=== PATIENT | male | born 1935 ===

== ENCOUNTER 2016-12-26 00:17 | Inpatient (IN) | payer MEDICARE, OTHER ==
[2016-12-26 01:18] VITALS: BMI 22.4
[2016-12-26] MEDS ORDERED: Meropenem 500 MG in Sodium Chloride 0.9% 100 ML IVPB ONE (03:00)
[2016-12-26] MEDS: Pantoprazole 40 mg EC Tab PO SCH (09:37)
[2016-12-26] MEDS ORDERED: Gentamicin 160 MG in Sodium Chloride 0.9% 100 ML IVPB ONE (11:00)
--- NOTE | 2016-12-26 12:05 | CP.PCM.CON ---
History of Present Illness - History of Present Illness History of Present Illness: sent from [facility] cysto on iv rx will renew merrem Past Patient History - Past Medical History & Family History Past Medical History?: Yes - Past Social History Smoking Status: Never Smoked - CARDIAC Hx Cardiac Disorders: No - PULMONARY Hx Respiratory Disorders: No - NEUROLOGICAL Hx Neurological Disorder: No - HEENT Hx HEENT Problems: No - RENAL Hx Chronic Kidney Disease: No - ENDOCRINE/METABOLIC Hx Endocrine Disorders: No - HEMATOLOGICAL/ONCOLOGICAL Hx Blood Disorders: No - INTEGUMENTARY Hx Dermatological Problems: No - MUSCULOSKELETAL/RHEUMATOLOGICAL Hx Falls: Yes - GASTROINTESTINAL Hx Gastrointestinal Disorders: Yes Other/Comment: abdominal surgery - GENITOURINARY/GYNECOLOGICAL Hx Genitourinary Disorders: Yes Hx Prostate Problems: Yes - PSYCHIATRIC Hx Substance Use: No - SURGICAL HISTORY Hx Surgeries: Yes Other/Comment: Surgery for gastric ulcer - ANESTHESIA Hx Anesthesia: Yes Hx Anesthesia Reactions: No Hx Malignant Hyperthermia: No Has any member of the family had a problem w/ anesthesia?: No Meds Allergies/Adverse Reactions: Allergies Allergy/AdvReac Type Severity Reaction Status Date / Time No Known Allergies Allergy Verified 12/20/16 13:46 - Medications Medications: Current Medications Acetaminophen (Tylenol 325mg Tab) 650 mg PO Q6 PRN PRN Reason: Pain, moderate (4-7) Vancomycin HCl 500 mg/ Sodium (Chloride) 100 mls @ 100 mls/hr IVPB DAILY [facility] Last Admin: 12/26/16 10:00 Dose: 100 mls/hr Meropenem 500 mg/ Sodium (Chloride) 100 mls @ 100 mls/hr IVPB Q8 ANNIA Pantoprazole Sodium (Protonix Ec Tab) 40 mg PO DAILY [facility] Last Admin: 12/26/16 09:37 Dose: Not Given Pneumococcal Polyvalent Vaccine (Pneumovax 23 Vaccine) 0.5 ml IM .ONCE ONE Stop: 12/28/16 10:01 Tamsulosin HCl (Flomax) 0.4 mg PO DAILY [facility] Last Admin: 12/26/16 09:37 Dose: Not Given Results - Vital Signs Recent Vital Signs: Last Vital Signs Temp 97.7 F 12/26/16 07:30 Pulse 54 L 12/26/16 07:30 Resp 18 12/26/16 07:30 BP 158/84 H 12/26/16 07:30 Pulse Ox 100 12/26/16 07:30
[2016-12-26] MEDS ORDERED: Lactated Ringer's 500 ML IV ONE ×3 (12:50→15:00)
[2016-12-26] MEDS ORDERED: Lidocaine 2% Jelly (Uro-Jet) ONE (12:55)
[2016-12-26] MEDS ORDERED: Etomidate 20 mg/10ml Inj IV ONE (12:58)
[2016-12-26] MEDS: Iohexol 240 (50 ml) ONE ×2 (13:18→13:30)
[2016-12-26] MEDS ORDERED: HYDROmorphone 0.5 mg/0.5 ml ISec IVP PRN (13:55)
--- NOTE | 2016-12-26 13:55 | PCM.SURG1 ---
Surgeon's Initial Post Op Note - Surgeon's Notes Surgeon: Elan Dog Food Dough Mixer: Na Type of Anesthesia: General LMA Anesthesia Administered By: staff Pre-Operative Diagnosis: Urethral stricture/urinary retention./scrotal and penile abcess old Operative Findings: urethral stricture/previously drained abcess Post-Operative Diagnosis: same Operation Performed: cysto/ballon dilitation/insertion of graham Specimen/Specimens Removed: na Estimated Blood Loss: EBL {In ML}: 0 Blood Products Given: N/A Drains Used: No Drains Post-Op Condition: Good Date of Surgery/Procedure: 12/26/16 Time of Surgery/Procedure: 13:58
--- NOTE | 2016-12-26 15:17 | OP ---
PROCEDURE DATE: 12/26/2016 PREOPERATIVE DIAGNOSES: Urethral stricture and urinary retention, and multiple superficial scrotal a nd penile skin abscesses which were spontaneously drained. POSTOPERATIVE DIAGNOSES: Urethral stricture and urinary retention, and multiple superficial scrotal and penile skin abscesses which were spontaneously drained. PROCEDURES: Cystoscopy, balloon dilatation of the urethra, and optical internal urethrotomy. DESCRIPTION OF PROCEDURE: The patient was draped and prepped in the usual manner. Prior to the proc edure, he has taken a detailed informed consent and explaining the risks, complications of urethral i ncision and balloon dilatation and the risks and complications of suprapubic cystotomy. The patient was brought into the room. After a timeout was taken according the rules and regulations of [facility], the patient was cystoscoped with a #21 Stortz panendoscope. The previously dilated distal u rethral stricture was located and we were able to pass a guidewire through this and also, under fluor oscopic control, through a second posterior urethral stricture and into the bladder. The guidewire w as noted to curl within the bladder. The balloon dilatation device was then passed over this and pos itioned properly with fluoroscopic and visual control, and then the balloon was inflated with the lizzeth ropriate amount of contrast. After a 3 minute delay, the balloon was deflated and the catheter was r emoved. The scope was backed out and a #20 2-way 5 mL catheter was passed over the balloon and into the bladder under fluoroscopic control. Approximately 1000 mL of yellow urine was obtained. Culture was obtained. Vang was inflated with the proper amount of saline. I would suggest that this hilaria ter be left in place for at least 1-2 weeks, until full antibiotic treatment of any infection is comp leted. Dino Ansari MD cc: [id number] TT: 12/26/2016 15:16:38 donta
--- NOTE | 2016-12-26 16:30 | RAD ---
PROCEDURE: Intraoperative Fluoroscopy. HISTORY: URETHERAL STRICTURE FINDINGS: Fluoroscopic assistance was provided for urethral stricture.. Please
[2016-12-26] MEDS: Meropenem 500 MG in Sodium Chloride 0.9% 100 ML IVPB SCH (21:23)
--- NOTE | 2016-12-26 22:21 | HP ---
HISTORY OF PRESENT ILLNESS: This is an 81-year-old male with history of multiple medical problems including urethral stricture, was transferred from [place] to [facility] for urethral dilatation and Vagn catheter insertion. Patient currently denied any chest pain or shortness of breath. Dr. Ansari is a urologist and patient will undergo the procedure at [facility]. REVIEW OF SYSTEMS: Otherwise negative. ALLERGIES: No known allergies. MEDICATIONS: Flomax 0.4 mg daily, meropenem 500 mg every 8 hours. SOCIAL HISTORY: Ex- smoker, no ETOH or substance abuse. FAMILY HISTORY: Noncontributory. PAST MEDICAL HISTORY: Status post gastric ulcer surgery. PHYSICAL EXAMINATION: GENERAL: The patient is in bed, comfortable, not in any cardiopulmonary distress. VITAL SIGNS: Blood pressure is 142/76, temperature 97.2, respiratory rate 14, pulse 65. HEENT: Pupils equal, reactive to light. Normal-appearing mucosa of the conjunctivae, oropharyngeal and nasal membrane mucosa. NECK: Supple, no JVD, no carotid bruit, no lymph node, no thyromegaly. CHEST AND LUNGS: Bilateral symmetrical expansion, good air exchange. No rales , no rhonchi. CARDIOVASCULAR: PMI not localized. S1, S2. No additional sounds. ABDOMEN: Normoactive bowel sounds, no tenderness, no organomegaly, no masses. EXTREMITIES: No cyanosis, no clubbing, no edema. CENTRAL NERVOUS SYSTEM: Alert, awake, oriented x 2. No neurological deficits could be appreciated. ASSESSMENT: 1. Urethral stricture. 2. 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 3. History of urinary retention. 4. Urinary tract infection. PLAN: Continue current IV antibiotics as per ID. Follow recommendations of urologist. Perry Stroud MD cc: [phone] TT: 12/26/2016 22:20:27 an MTDD
[2016-12-27] MEDS: Meropenem 500 MG in Sodium Chloride 0.9% 100 ML IVPB SCH ×3 (06:38→21:26)
[2016-12-27 08:57] LABS: CHLORIDE 106 mmol/L (98-107); POTASSIUM 3.3 mmol/L (3.6-5.2); SODIUM 139 mmol/L (132-148)
[2016-12-27 08:59] LABS: GFR AFRICAN-AMERICAN > 60
[2016-12-27 09:00] LABS: BLOOD UREA NITROGEN 11 mg/dL (9-20); CALCIUM 7.5 mg/dl (8.6-10.4); CARBON DIOXIDE 25 mmol/L (22-30); GLUCOSE,RANDOM 85 mg/dL (75-110)
[2016-12-27 09:01] LABS: BASO # 0.1 K/uL (0.0-0.2); BASO % 0.9 % (0.0-2.0); EOS # 0.1 K/uL (0.0-0.7); HEMATOCRIT 36.9 % (35.0-51.0); LYMPH # 1.3 K/uL (1.0-4.3); LYMPH % 19.4 % (20.0-40.0); MEAN CELL VOLUME 91.7 fL (80.0-94.0); MEAN CORPUSCULAR HGB CONC 32.7 g/dL (33.0-37.0); MEAN PLATELET VOLUME 8.8 fL (7.2-11.7); MONO # 0.4 K/uL (0.0-0.8); MONO % 5.9 % (0.0-10.0); NRBC % 0.2 % (0.0-2.0); RED CELL DISTRIBUTION WIDTH 14.5 % (11.5-14.5); WHITE BLOOD COUNT 6.8 K/uL (4.8-10.8)
[2016-12-27] MEDS: Pantoprazole 40 mg EC Tab PO SCH (09:33)
[2016-12-27] MEDS: Enoxaparin 40 mg Syringe SC SCH (11:23)
--- NOTE | 2016-12-27 17:10 | CP.PCM.PN ---
Subjective - Date & Time of Evaluation Date of Evaluation: 12/27/16 Time of Evaluation: 07:00 - Subjective Subjective: s/p drainage penile/scrotal abscess and ureteral dilatation feels ok no fever rx in progress Objective - Vital Signs/Intake and Output Vital Signs (last 24 hours): Temp Pulse Resp BP Pulse Ox 98.3 F 67 18 129/76 97 12/27/16 15:59 12/27/16 15:59 12/27/16 15:59 12/27/16 15:59 12/27/16 15:59 Intake and Output: 12/27/16 12/27/16 06:59 18:59 Intake Total 500 Output Total 2500 500 Balance -2000 -500 - Medications Medications: Current Medications Acetaminophen (Tylenol 325mg Tab) 650 mg PO Q6 PRN PRN Reason: Pain, moderate (4-7) Enoxaparin Sodium (Lovenox) 40 mg SC DAILY [facility] Last Admin: 12/27/16 11:23 Dose: 40 mg Vancomycin HCl 500 mg/ Sodium (Chloride) 100 mls @ 100 mls/hr IVPB DAILY [facility] Last Admin: 12/27/16 09:34 Dose: 100 mls/hr Meropenem 500 mg/ Sodium (Chloride) 100 mls @ 100 mls/hr IVPB Q8 [facility] Last Admin: 12/27/16 13:20 Dose: 100 mls/hr Pantoprazole Sodium (Protonix Ec Tab) 40 mg PO DAILY [facility] Last Admin: 12/27/16 09:33 Dose: 40 mg Pneumococcal Polyvalent Vaccine (Pneumovax 23 Vaccine) 0.5 ml IM .ONCE ONE Stop: 12/28/16 10:01 Tamsulosin HCl (Flomax) 0.4 mg PO DAILY [facility] Last Admin: 12/27/16 09:33 Dose: 0.4 mg - Labs Labs: 12/27/16 08:37 12/27/16 08:37 - Constitutional Appears: Non-toxic, Chronically Ill - Head Exam Head Exam: NORMOCEPHALIC - Eye Exam Eye Exam: PERRL. absent: Scleral icterus - ENT Exam ENT Exam: Mucous Membranes Dry, Normal External Ear Exam - Neck Exam Neck Exam: absent: Lymphadenopathy - Respiratory Exam Respiratory Exam: Decreased Breath Sounds, Clear to Ausculation Bilateral - Cardiovascular Exam Cardiovascular Exam: REGULAR RHYTHM, +S1, +S2 - GI/Abdominal Exam GI & Abdominal Exam: Distended, Soft. absent: Tenderness - Rectal Exam Rectal Exam: Deferred - Exam Exam: NORMAL INSPECTION - Extremities Exam Extremities Exam: absent: Pedal Edema - Back Exam Back Exam: absent: CVA tenderness (L), CVA tenderness (R) - Neurological Exam Neurological Exam: Alert, Awake, Oriented x3 - Psychiatric Exam Psychiatric exam: Normal Mood - Skin Skin Exam: Dry Assessment and Plan (1) Abscess of penis Status: Acute (2) Abscess of shaft of penis Status: Acute (3) Urinary retention Status: Acute (4) Urinary tract infection due to Proteus Status: Acute
[2016-12-27] MEDS ORDERED: Potassium Chloride 20 mEq/15 ml LIQ UD PO ONE (22:32)
--- NOTE | 2016-12-28 00:15 | PN ---
DATE: 12/27/2016 SUBJECTIVE: The patient is seen today, 12/27/2016. He is not in pain anymore. PHYSICAL EXAMINATION VITAL SIGNS: Blood pressure 155/81, temperature 97.6, respiratory rate 20, and pulse 86. HEENT: Equal reactive to light. Normal-appearing mucosa of the conjunctivae, oropharyngeal and nasa l membrane mucosa. NECK: Supple, no JVD, no carotid bruit, no lymph node, no thyromegaly. CHEST AND LUNGS: Symmetrical expansion, good air exchange, no rales, no rhonchi. CARDIOVASCULAR: PMI not localized, S1 and S2. No additional sounds. ABDOMEN: Normoactive bowel sounds, no tenderness, no organomegaly, no masses. EXTREMITIES: No cyanosis, no clubbing, no edema. CENTRAL NERVOUS SYSTEM: Alert, awake, oriented x 2. No neurological deficits could be appreciated. ASSESSMENT: 1. Status post urinary retention secondary to urethral stricture. 2. Urinary tract infection with klebsiella, which is multidrug resistant. 3. Benign abscess, status post incision and drainage. PLAN: Continue current IV antibiotics, both vancomycin and meropenem. Deep vein thrombosis prophyla xis, physical therapy. Continue on the Vang catheter and we will supplement potassium today because potassium is 3.3. Perry Stroud MD cc: 167 TT: 12/28/2016 00:14:52 Confirmation # [id number] Dictation # [id number] donta
[2016-12-28 02:42] LABS: RBC URINE 14 /hpf (0-3); URINE BACTERIA RARE (<OCC); URINE BILIRUBIN NEGATIVE (NEGATIVE); URINE BLOOD 2+ (NEGATIVE); URINE COLOR Yellow (YELLOW); URINE GLUCOSE (UA) NORMAL (Normal); URINE KETONE NEGATIVE (NEGATIVE); URINE LEUKOCYTE ESTERASE 3+ Leu/uL (Negative); URINE PROTEIN NEGATIVE (NEGATIVE); URINE UROBILINOGEN NORMAL mg/dL (0.2-1.0); WBC URINE 115 /hpf (0-5)
[2016-12-28] MEDS: Meropenem 500 MG in Sodium Chloride 0.9% 100 ML IVPB SCH ×3 (05:36→22:01)
[2016-12-28] MEDS: Pantoprazole 40 mg EC Tab PO SCH (09:56)
[2016-12-28] MEDS: Enoxaparin 40 mg Syringe SC SCH (09:57)
[2016-12-28] MEDS ORDERED: Pneumococcal 23-Valent Vaccine IM ONE (10:00)
--- NOTE | 2016-12-28 20:41 | PN ---
DATE: 12/28/2016 SUBJECTIVE: The patient is seen today, 12/28/2016. He is still on IV antibiotics, both meropenem an d vancomycin. PHYSICAL EXAMINATION: VITAL SIGNS: Blood pressure is 137/83, temperature 97.4, respiratory rate 20, and pulse 62. HEENT: Pupils equal, reactive to light. Normal-appearing mucosa of the conjunctivae, oropharyngeal, and nasal membrane mucosa. NECK: Supple. No JVD. No carotid bruit. No lymph node. No thyromegaly. CHEST AND LUNGS: Bilateral symmetrical expansion, good air exchange. No rales. No rhonchi. CARDIOVASCULAR: PMI not localized. S1, S2. No additional sounds. ABDOMEN: Normoactive bowel sounds. No tenderness. No organomegaly. No masses. EXTREMITIES: No cyanosis. No clubbing. No edema. CENTRAL NERVOUS SYSTEM: Alert, awake, oriented x 2. No neurological deficits could be appreciated. ASSESSMENT: 1. Urinary retention secondary to urethral stricture, status post urethral dilatation. 2. Urinary tract infection. 3. Penile abscess. PLAN: Continue current IV antibiotics and follow recommendations of the ID and maintain Vang cathet er and follow recommendations of urologist. Perry Stroud MD cc: [phone] TT: 12/28/2016 20:39:58 Confirmation # [id number] Dictation # [id number]
[2016-12-29] MEDS: Meropenem 500 MG in Sodium Chloride 0.9% 100 ML IVPB SCH ×2 (05:11→13:04)
[2016-12-29 07:57] VITALS: O2SAT 95
[2016-12-29] MEDS: Pantoprazole 40 mg EC Tab PO SCH (09:45)
[2016-12-29] MEDS: Enoxaparin 40 mg Syringe SC SCH (09:45)
--- NOTE | 2016-12-29 11:25 | CP.PCM.PN ---
Subjective - Date & Time of Evaluation Date of Evaluation: 12/29/16 Time of Evaluation: 11:00 - Subjective Subjective: Alert, awake, denies pain or distress. Objective - Vital Signs/Intake and Output Vital Signs (last 24 hours): Temp Pulse Resp BP Pulse Ox 97.5 F L 58 L 18 131/84 95 12/29/16 07:20 12/29/16 07:20 12/29/16 07:20 12/29/16 07:20 12/29/16 07:20 Intake and Output: 12/29/16 12/29/16 06:59 18:59 Output Total 1650 Balance -1650 - Medications Medications: Current Medications Acetaminophen (Tylenol 325mg Tab) 650 mg PO Q6 PRN PRN Reason: Pain, moderate (4-7) Cephalexin Monohydrate (Keflex) 500 mg PO TID [facility] Last Admin: 12/29/16 10:48 Dose: 500 mg Enoxaparin Sodium (Lovenox) 40 mg SC DAILY [facility] Last Admin: 12/29/16 09:45 Dose: 40 mg Vancomycin HCl 500 mg/ Sodium (Chloride) 100 mls @ 100 mls/hr IVPB DAILY [facility] Last Admin: 12/28/16 09:57 Dose: 100 mls/hr Meropenem 500 mg/ Sodium (Chloride) 100 mls @ 100 mls/hr IVPB Q8 [facility] Last Admin: 12/29/16 05:11 Dose: 100 mls/hr Pantoprazole Sodium (Protonix Ec Tab) 40 mg PO DAILY [facility] Last Admin: 12/29/16 09:45 Dose: 40 mg Tamsulosin HCl (Flomax) 0.4 mg PO DAILY [facility] Last Admin: 12/29/16 09:45 Dose: 0.4 mg - Labs Labs: 12/27/16 08:37 12/27/16 08:37 Assessment and Plan - Assessment and Plan (Free Text) Assessment: Patient is seen and examined, alert, orientedx3, NAD. Denies pain, graham in place. D/W DR Stroud, discharge plan for today with leg bag and keep the graham catheter. To follow up with DR Kuhn in 1 week in the office.
[2016-12-29 11:53] LABS: CHLORIDE 104 mmol/L (98-107); POTASSIUM 3.9 mmol/L (3.6-5.2); SODIUM 137 mmol/L (132-148)
[2016-12-29 11:55] LABS: GFR AFRICAN-AMERICAN > 60
[2016-12-29 11:56] LABS: BLOOD UREA NITROGEN 9 mg/dL (9-20); CARBON DIOXIDE 21 mmol/L (22-30); GLUCOSE,RANDOM 87 mg/dL (75-110)
[2016-12-29 16:16] VITALS: BP 123/71; PULSE 76; RESP 20; TEMP 98.7
--- NOTE | 2017-03-08 10:49 | DS ---
HISTORY OF PRESENT ILLNESS: This is an 81-year-old male with history of urinary retention secondary to urethral stricture, was transferred from [facility] to [facility] for management of the same. COURSE OF HOSPITALIZATION: The patient was transferred to [facility]. Patient's urologist was Dr. Mane who attempted the procedure in [facility] and due to unavailability of instruments, patient was transferred to [facility] where he had urethral dilation procedure and catheter was placed. The patient was continued on IV antibiotics both meropenem and vancomycin treating sepsis and urinary tract infection and he was discharged home in stable condition with urinary catheter to follow with urologist after discharge. FINAL DIAGNOSES: 1. Urinary retention secondary to urethral stricture, status post urethral dilatation. 2. Urinary tract infection. 3. Penile abscess, which resolved. Perry Stroud MD
== END 2016-12-29 19:18 | disposition home or self-care (01) | DRG 697 ==
LOC: C.6T 00:17
PROVIDERS: ADMIT Internal Medicine; ATTEND Internal Medicine
PROC: 0T7D8DZ Dilation of Urethra with Intraluminal Device, Via Natural or Artificial Opening Endoscopic (ICD-10-PCS; principal; 2016-12-26 12:30)
DX: N35.9 Urethral stricture, unspecified (principal); N39.0 Urinary tract infection, site not specified; B96.1 Klebsiella pneumoniae [K. pneumoniae] as the cause of diseases classified elsewhere; N48.21 Abscess of corpus cavernosum and penis; Z16.24 Resistance to multiple antibiotics; Z87.11 Personal history of peptic ulcer disease; B96.4 Proteus (mirabilis) (morganii) as the cause of diseases classified elsewhere; Z87.891 Personal history of nicotine dependence

== ENCOUNTER 2017-08-13 09:48 | Day surgery (SDC) | payer MEDICARE, OTHER ==
[2017-08-10 08:11] VITALS: BMI 24.9
[2017-08-13] MEDS ORDERED: Propofol 10 mg/ml Inj (20 ML) ONE ×2 (13:02→13:36)
[2017-08-13] MEDS ORDERED: Midazolam 2 MG/2 ML VIAL ONE (13:02)
[2017-08-13] MEDS ORDERED: Iohexol 240 (50 ml) ONE (13:09)
[2017-08-13] MEDS ORDERED: Lactated Ringer's 1,000 ML IV ONE (13:12)
[2017-08-13] MEDS: Gentamicin 160 MG in Sodium Chloride 0.9% 100 ML IVPB ONE ×2 (13:20→13:26)
[2017-08-13] MEDS: Ciprofloxacin 400mg/200ml D5W 400 MG/200 ML BAG IVPB ONE ×2 (13:27→13:40)
[2017-08-13] MEDS ORDERED: Etomidate 20 mg/10ml Inj IV ONE (13:36)
[2017-08-13] MEDS ORDERED: Phenylephrine 10 mg/ml Inj ONE (13:36)
--- NOTE | 2017-08-13 13:49 | PCM.SURG1 ---
Surgeon's Initial Post Op Note - Surgeon's Notes Surgeon: Elan Coding Clerk: laurent Type of Anesthesia: General LMA Anesthesia Administered By: Staff Pre-Operative Diagnosis: Urethral stricture Operative Findings: urethral stricture Post-Operative Diagnosis: same Operation Performed: Cysto oiu ballon dilation Specimen/Specimens Removed: na Estimated Blood Loss: EBL {In ML}: 0 Blood Products Given: N/A Drains Used: No Drains Post-Op Condition: Good Date of Surgery/Procedure: 08/13/17 Time of Surgery/Procedure: 13:49
[2017-08-13] MEDS ORDERED: Lactated Ringer's 1,000 ML IV PRN (13:52)
--- NOTE | 2017-08-13 14:11 | RAD ---
PROCEDURE: HISTORY: URETHRAL STRICTURE COMPARISON: Not available TECHNIQUE: Intraoperative fluoroscopy was provided for evaluation of urethral stricture. Total time of fluoroscopy was 1.8 seconds. FINDINGS: A single fluoroscopic spot film is submitted. IMPRESSION: Fluoroscopy provided
[2017-08-13 15:19] VITALS: O2SAT 97
[2017-08-13 15:57] VITALS: BP 111/71; PULSE 75; RESP 18; TEMP 98.5
--- NOTE | 2017-09-24 09:35 | OP ---
PROCEDURE DATE: 08/13/2017 PREOPERATIVE DIAGNOSIS: Urethral stricture. POSTOPERATIVE DIAGNOSIS: Urethral stricture. PROCEDURE: Cystoscopy, optical internal urethrotomy and balloon dilatation. SURGEON: Dino Ansari MD DESCRIPTION OF PROCEDURE: As follows. Before the procedure, detailed informed consent was obtained from the patient. He is aware of the risks, complications, and limitations of this procedure and alternative ways of treating urethral stricture. He was identified and brought into the room and a time-out was taken according to the rules and regulations of [facility]. The patient received prophylactic antibiotics, he was cystoscoped with a #21 Storz panendoscope. The pendulous and membranous urethra was visualized and the mid membrane of urethra with pin-point urethral stricture. A guidewire was passed through the center within the OIU and instrument was used to cut the fibers of stricture. The stricture was further dilated by using a balloon inflating it over the area of stricture to full 30 [place] capacity. Once this was done, it left in place for approximately 5 minutes, then deflated and removed. A #20 two-way 5 mL [place] tip catheter was then passed over the guidewire after the bladder and prostatic urethra were inspected and found to be normal. The catheter was left in place and inflated with normal saline. The patient given detailed postoperative instructions and followup appointment in our office in one week. Dino Ansari MD
== END 2017-08-13 15:59 | disposition home or self-care (01) ==
LOC: C.SDS 09:48
PROVIDERS: ATTEND Urology
DX: N35.9 Urethral stricture, unspecified (principal)
CPT/HCPCS: 52276; J0744; J1580; J7120

== ENCOUNTER 2017-08-25 13:11 | Emergency (ER) | payer MEDICARE, OTHER ==
[2017-08-25 13:34] VITALS: BMI 22.7
[2017-08-25 13:37] VITALS: BP 139/90; PULSE 87; RESP 18; TEMP 98.3; O2SAT 96
--- NOTE | 2017-08-25 15:18 | C.PDOC ---
History Of Present Illness 81 y/o male presents to the ER requesting that his urine bag to be changed. Patient notes that there is a hole in his bag. He denies having any difficulty with the catheter and the catheter is draining well. Patient denies having pain , hematuria, and discharge. Of note, patient states that he has been using Vang catheters intermittently for the past 3 years for his enlarged prostate and his urologist is . Time Seen by Provider: 08/25/17 15:14 Chief Complaint (Nursing): Male Genitourinary History Per: Patient History/Exam Limitations: no limitations Past Medical History Reviewed: Historical Data, Nursing Documentation, Vital Signs Vital Signs: Last Vital Signs Temp 98.3 F 08/25/17 13:34 Pulse 87 08/25/17 13:34 Resp 18 08/25/17 13:34 BP 139/90 08/25/17 13:34 Pulse Ox 96 08/25/17 15:58 - Medical History PMH: No Chronic Diseases Denies: Chronic Kidney Disease Surgical History: No Surg Hx - [facility] Procedures DILATION OF URETHRA WITH INTRALUMINAL DEVICE, ENDO (12/26/16) INSPECTION OF BLADDER, ENDO (12/20/16) Family History: States: No Known Family Hx - Social History Hx Alcohol Use: No Hx Substance Use: No Review Of Systems Except As Marked, All Systems Reviewed And Found Negative. Physical Exam - Physical Exam Appears: Non-toxic, No Acute Distress Skin: Normal Color, Warm Head: Atraumatic, Normacephalic Eye(s): bilateral: Normal Inspection, EOMI Nose: Normal Oral Mucosa: Moist Neck: Normal ROM, Supple Chest: Symmetrical Respiratory: No Accessory Muscle Use Gastrointestinal/Abdominal: Normal Exam, Soft, No Tenderness Extremity: Normal ROM Neurological/Psych: Oriented x3, Normal Speech, Normal Cognition ED Course And Treatment O2 Sat by Pulse Oximetry: 96 (RA) Pulse Ox Interpretation: Normal Progress Note: The Vang has been changed by the RN. Patient states he does not want any further evaluation. He wants to be discharged and follow up with his urologist. Disposition - Disposition Referrals: Dino Ansari Jr., MD [Staff Provider] - Disposition: HOME/ ROUTINE Disposition Time: 15:08 Condition: STABLE Instructions: Vang Catheter Placement and Care (ED) Forms: [employer] (Ukrainian) Print Language: CHINESE - Clinical Impression Clinical Impression: Encounter for evaluation of Vang catheter - PA / ROBOTYPE OPERATOR / Resident Statement MD/DO has reviewed & agrees with the documentation as recorded. - Scribe Statement The provider has reviewed the documentation as recorded by the Scribe Wanda Trujillo Provider Attestation All medical record entries made by the Shainaibe were at my direction and personally dictated by me. I have reviewed the chart and agree that the record accurately reflects my personal performance of the history, physical exam, medical decision making, and the department course for this patient. I have also personally directed, reviewed, and agree with the discharge instructions and disposition.
== END 2017-08-25 15:25 | disposition home or self-care (01) ==
LOC: C.ER 13:11
DX: Z46.6 Encounter for fitting and adjustment of urinary device (principal); N40.0 Benign prostatic hyperplasia without lower urinary tract symptoms

== ENCOUNTER 2017-09-10 09:48 | Emergency (ER) | payer MEDICARE, OTHER ==
[2017-09-10 09:48] VITALS: BMI 22.7
[2017-09-10 10:29] VITALS: PULSE 77; RESP 16; O2SAT 96
[2017-09-10 10:30] VITALS: BP 136/72; TEMP 98.8
--- NOTE | 2017-09-10 15:41 | C.PDOC ---
History Of Present Illness 81 y/o male presents to the ER requesting a new leg bag for an indwelling Vang. Patient denies having fever, chills, vomiting, and other complaints. Chief Complaint (Nursing): Medical Clearance History Per: Patient History/Exam Limitations: no limitations Current Symptoms Are (Timing): Still Present Severity: Moderate Past Medical History Reviewed: Historical Data, Nursing Documentation, Vital Signs Vital Signs: Last Vital Signs Temp 98.8 F 09/10/17 10:26 Pulse 77 09/10/17 10:26 Resp 16 09/10/17 10:26 BP 136/72 09/10/17 10:26 Pulse Ox 96 09/10/17 15:55 - Medical History PMH: No Chronic Diseases Denies: Chronic Kidney Disease Surgical History: No Surg Hx - [facility] Procedures DILATION OF URETHRA WITH INTRALUMINAL DEVICE, ENDO (12/26/16) INSPECTION OF BLADDER, ENDO (12/20/16) Family History: States: No Known Family Hx - Social History Hx Alcohol Use: No Hx Substance Use: No - Immunization History Hx Influenza Vaccination: No Review Of Systems Except As Marked, All Systems Reviewed And Found Negative. Physical Exam - Physical Exam Appears: Non-toxic, No Acute Distress Skin: Normal Color, Warm Head: Atraumatic, Normacephalic Eye(s): bilateral: Normal Inspection Nose: Normal Oral Mucosa: Moist Neck: Supple Chest: Symmetrical Cardiovascular: Rhythm Regular Respiratory: Normal Breath Sounds, No Accessory Muscle Use, No Rales, No Rhonchi , No Wheezing Extremity: Normal ROM Neurological/Psych: Oriented x3, Normal Speech, Normal Motor, Normal Sensation Additional Physical Exam Comments: Vang bag in place ED Course And Treatment O2 Sat by Pulse Oximetry: 96 (RA) Pulse Ox Interpretation: Normal Progress Note: Case discussed with , urologist. is requesting urine culture and antibiotics. He will see patient in the office tomorrow. Disposition - Disposition Referrals: Dino Ansari Jr., MD [Staff Provider] - Disposition: HOME/ ROUTINE Disposition Time: 10:50 Condition: GOOD Additional Instructions: Thank you for letting us take care of you today. The emergency medical care you received today was directed at your acute symptoms. If you were prescribed any medication, please fill it and take as directed. It may take several days for your symptoms to resolve. Return to the Emergency Department if your symptoms worsen, do not improve, or if you have any other problems. Please contact your doctor or call one of the physicians/clinics you have been referred to that are listed on the Patient Visit Information form that is included in your discharge packet. Bring any paperwork you were given at discharge with you along with any medications you are taking to your follow up visit. Our treatment cannot replace ongoing medical care by a primary care provider (PCP) outside of the emergency department. Thank you for allowing the [facility] team to be part of your care today. Follow up with your urologist tomorrow for re-evaluation and further management. Jamshid por dejarnos atenderlo hoy. La atencin mdica de emergencia que recibi hoy estaba dirigida a harmony sntomas agudos. Si le prescribieron algn medicamento, llnelo y tome segn las indicaciones. Harmony sntomas pueden tardar varios tong en resolverse. Regrese al Departamento de Emergencia si harmony s ntomas empeoran, no mejoran o si tiene algn otro problema. Comunquese con carter mdico o llame a estella de los mdicos / clnicas a los que lang sido referido que figura en el formulario de Informacin de visita del paciente que se incluye en carter paquete de dickson. Traiga todos los documentos que recibi al momento del dickson junto con los medicamentos que est tomando en carter visita de seguimiento. Nuestro tratamiento no puede reemplazar la atencin mdica en curso por parte de un proveedor de atencin primaria (PCP) fuera del departamento de emergencias. Jamshid por permitir que el equipo de [facility] sea parte de carter cuidado hoy. Emma un seguimiento con carter urlogo maana para meme reevaluacin y administraci n adicional. Prescriptions: Ciprofloxacin [Cipro] 500 mg PO BID #14 tab Instructions: Urinary Leg Bag (GEN) Forms: Gen Discharge Inst Yoruba Print Language: CZECH - Clinical Impression Clinical Impression: Encounter for evaluation of Vang catheter - Scribe Statement The provider has reviewed the documentation as recorded by the Scribe Wanda Trujillo Provider Attestation: All medical record entries made by the Scribe were at my direction and personally dictated by me. I have reviewed the chart and agree that the record accurately reflects my personal performance of the history, physical exam, medical decision making, and the department course for this patient. I have also personally directed, reviewed, and agree with the discharge instructions and disposition.
== END 2017-09-10 11:30 | disposition home or self-care (01) ==
LOC: C.ER 09:48
DX: Z46.6 Encounter for fitting and adjustment of urinary device (principal)